=== PATIENT | male | born 1950 | race Caucasian/White ===

== ENCOUNTER → 2016-05-17 | Outpatient (CLI) | payer MEDICARE ==
--- NOTE | 2016-05-17 18:01 | REP ---
Left hip: Three views. History: Pain. Findings: AP and frog-leg views of the left hip are compared with prior study from February 21, 2007. Left hip arthroplasty is again seen unchanged in position. There is mild heterotopic bone formation about the greater trochanter. Vascular calcification is noted. There is no radiographic evidence of loosening. No bony erosive changes seen. IMPRESSION: Status post left hip arthroplasty. Mild heterotopic bone formation. No fracture or other acute bony abnormality. Signed by Justin Parrish MD 05/17/2016 10:14 P
== END ==
LOC: M WUC 15:09
PROVIDERS: ATTEND Nurse Practitioner Family
DX: Z12.5 Encounter for screening for malignant neoplasm of prostate (principal); M25.552 Pain in left hip

== ENCOUNTER → 2016-08-07 | Outpatient (REF) | payer MEDICARE | LOC: M LAB REF 12:51 | PROVIDERS: ATTEND Otolaryngology | DX: H73.12 Chronic myringitis, left ear (principal) ==

== ENCOUNTER 2016-11-30 15:18 | Inpatient (IN) | payer MEDICARE, MEDICAID ==
[~2016-11-30] VITALS: Ht 177.8 cm; Wt 111.0 kg
[2016-11-30] MEDS ORDERED: ZETI10TA30 PO (15:26)
[2016-11-30] MEDS ORDERED: ATOR40TA75 PO (15:26)
[2016-11-30] MEDS ORDERED: PRAD150C PO (15:26)
[2016-11-30] MEDS ORDERED: LISI-538 PO (15:26)
[2016-11-30] MEDS ORDERED: CARV25TA PO (15:26)
[2016-11-30] MEDS ORDERED: BUME2TAB PO (15:26)
[2016-11-30] MEDS ORDERED: ASPI1TAB PO (15:26)
[2016-11-30] MEDS ORDERED: NS 500 ML IV ONE ×2 (15:30→15:45)
--- NOTE | 2016-11-30 15:45 | REP ---
Portable chest, 03:38 p.m., single AP view, patient sitting: Comparison is 05/13/2011. There has been interim placement of a pacemaker. Cardiac size is normal. The previous cardiomegaly has resolved. The lung sheppard are clear. The previous interstitial coarsening has resolved. There are no pleural effusions. Impression: Negative portable chest. There has been interim placement of a pacemaker. Signed by Cisco Shields MD 11/30/2016 03:36 P
[2016-11-30 15:47] LABS: BASO % 0.6 % (0.0-1.0); EOS # 0.6 K/mm3 (0.0-0.50); EOS % 8.5 % (0.0-3.0); LARGE UNSTAINED CELL # 0.2 K/mm3 (0.0-0.4); LARGE UNSTAINED CELL % 2.4 % (0.0-4.0); LYMPH # 2.1 K/mm3 (1.5-4.5); MEAN CORPUSCULAR HEMOGLOBIN 29.2 pg (27.0-33.0); MEAN CORPUSCULAR HGB CONC 33.3 g/dl (32.0-36.5); MEAN CORPUSCULAR VOLUME 87.6 fl (80.0-96.0); MONO # 0.4 K/mm3 (0.0-0.8); MONO % 5.5 % (0.0-5.0); NEUTROPHILS # 4.1 K/mm3 (1.8-7.7); PLATELET COUNT, AUTOMATED 153 k/mm3 (150-450); RED CELL DISTRIBUTION WIDTH 12.7 % (11.5-14.5); WHITE BLOOD COUNT 7.2 K/mm3 (4.0-10.0)
[2016-11-30 15:56] LABS: INR 1.99
[2016-11-30 16:21] LABS: ALBUMIN 3.8 GM/DL (3.2-5.2); ALBUMIN/GLOBULIN RATIO 1.03 (1.00-1.93); ALKALINE PHOSPHATASE 77 U/L (45-117); ALT/SGPT 46 U/L (12-78); ANION GAP 6 MEQ/L (8-16); AST/SGOT 33 U/L (15-37); BILIRUBIN,DIRECT 0.2 MG/DL (0.0-0.2); BILIRUBIN,TOTAL 0.7 MG/DL (0.2-1.0); BLOOD UREA NITROGEN 42 MG/DL (7-18); CALCIUM LEVEL 9.2 MG/DL (8.8-10.2); CARBON DIOXIDE LEVEL 32 MEQ/L (21-32); CHLORIDE LEVEL 100 MEQ/L (98-107); CREATININE FOR GFR 2.79 MG/DL (0.70-1.30); GLOMERULAR FILTRATION RATE 24.5 (>49); GLUCOSE, FASTING 109 MG/DL (80-110); SODIUM LEVEL 138 MEQ/L (136-145); TOTAL PROTEIN 7.5 GM/DL (6.4-8.2)
[2016-11-30 16:43] LABS: AMYLASE 63 U/L (25-115)
[2016-11-30] MEDS ORDERED: LORA10TA2 PO (16:43)
[2016-11-30] MEDS ORDERED: VITMTA PO (16:43)
[2016-11-30] MEDS ORDERED: NITROGLYCERIN SPRAY SL (16:45)
--- NOTE | 2016-11-30 17:12 | REP ---
CT of the abdomen pelvis without IV or bowel contrast: Comparison is 09/22/2012. The visualized lung sheppard are unremarkable. The unenhanced hepatic parenchyma, pancreas and spleen are unremarkable. There are surgical clips in the gallbladder fossa. The adrenals are unremarkable. There is no hydronephrosis. No renal calculi. The unenhanced kidneys are otherwise unremarkable. There is no abdominal aortic aneurysm. There is no retroperitoneal hematoma. The aorta is unremarkable. There is no ascites or free fluid. There is no bowel distension. There is no pneumoperitoneum. There is diverticulosis, diverticulitis of the descending colon and sigmoid colon. Pelvis: The bladder is unremarkable. There is no ascites. There are bilateral hip arthroplasties resulting in significant beam-hardening artifact. Impression: The abdominal aorta is unremarkable. There is no hemoperitoneum or pneumoperitoneum. No ascites. No adenopathy or mass. There is a cholecystectomy. No bowel distension or obstruction. Diverticulosis without diverticulitis. Signed by Cisco Shields MD 11/30/2016 05:03 P
[2016-11-30] MEDS ORDERED: ONDANSETRON 4MG/2ML VIAL (J2405) IV PRN (18:00)
--- NOTE | 2016-11-30 18:29 | ECGEPIP ---
Stationary ECG Study [facility] - ED Test Date: 2016-11-30 Pat Name: CRISTHIAN MCCAULEY Department: Room: - Gender: M Outdoor Adventure Instructor: RN : [id number] Requested By: Anca Velasquez Order Number: [id number] Reading MD: Anca Velasquez Measurements Intervals [place] Rate: 56 P: NM: 0 QRS: 206 QRSD: 161 T: 31 QT: 467 QTc: 451 Interpretive Statements ELECTRONIC VENTRICULAR PACEMAKER ABNORMAL RHYTHM ECG ATRIAL FIBRILLATION PACING NEW 09/22/12 Electronically Signed On 11-30-2016 18:28:43 EDT by Anca Velasquez
[2016-11-30 19:00] VITALS: BP 102/56
--- NOTE | 2016-11-30 19:20 | REPUSA ---
CLINICAL HISTORY: R/o DVT. COMMENTS: Real time sonography with duplex doppler of the extremities bilaterally was performed with attention to the major deep venous structures. Evaluation reveals the common femoral, superficial femoral, popliteal and posterior tibial veins bila terally to be completely compressible without intraluminal thrombus. There is normal spontaneous phas ic flow and augmentation in all deep veins. The greater saphenous/common femoral vein junctions are p atent bilaterally. IMPRESSION: No evidence of DVT in the lower extremities bilaterally. Thank you for your kind referral of this patient.
[2016-11-30] MEDS: EZETIMIBE 10 MG TAB (ZETIA) PO SCH (20:50)
[2016-11-30] MEDS: ATORVASTATIN 20 MG TAB PO SCH (20:50)
[2016-11-30] MEDS: NS 1,000 ML IV SCH (20:50)
[2016-11-30] MEDS ORDERED: HEPARIN SOD (PORCINE) 5000 UNITS/ML VIAL SC SCH (21:00)
[2016-11-30] MEDS: DABIGATRAN ETEXILATE 75 MG CAP (PRADAXA) PO SCH (21:47)
[2016-11-30 23:45] VITALS: BP 99/56
[2016-11-30 23:47] VITALS: BP 99/55
[2016-11-30 23:48] VITALS: BP 102/56
[2016-12-01 04:00] VITALS: BP 108/65
[2016-12-01 05:19] LABS: BASO % 0.4 % (0.0-1.0); EOS # 0.8 K/mm3 (0.0-0.50); EOS % 10.9 % (0.0-3.0); LARGE UNSTAINED CELL # 0.2 K/mm3 (0.0-0.4); LARGE UNSTAINED CELL % 2.9 % (0.0-4.0); LYMPH # 2.3 K/mm3 (1.5-4.5); LYMPH % 29.9 % (24.0-44.0); MEAN CORPUSCULAR HEMOGLOBIN 29.8 pg (27.0-33.0); MEAN CORPUSCULAR HGB CONC 33.5 g/dl (32.0-36.5); MEAN CORPUSCULAR VOLUME 89.1 fl (80.0-96.0); MONO # 0.5 K/mm3 (0.0-0.8); NEUTROPHILS # 3.4 K/mm3 (1.8-7.7); PLATELET COUNT, AUTOMATED 134 k/mm3 (150-450); RED CELL DISTRIBUTION WIDTH 12.8 % (11.5-14.5); WHITE BLOOD COUNT 6.9 K/mm3 (4.0-10.0)
[2016-12-01 05:46] LABS: ANION GAP 6 MEQ/L (8-16); BLOOD UREA NITROGEN 39 MG/DL (7-18); CARBON DIOXIDE LEVEL 30 MEQ/L (21-32); CHLORIDE LEVEL 108 MEQ/L (98-107); CREATININE FOR GFR 1.73 MG/DL (0.70-1.30); GLOMERULAR FILTRATION RATE 42.5 (>49); GLUCOSE, FASTING 98 MG/DL (80-110); MAGNESIUM LEVEL 2.1 MG/DL (1.8-2.4); POTASSIUM SERUM 4.9 MEQ/L (3.5-5.1); SODIUM LEVEL 144 MEQ/L (136-145)
--- NOTE | 2016-12-01 07:33 | REP ---
Renal ultrasound: The kidneys are normal size. Right kidney measures 11.8 x 6.5 x 5.8 cm. Left kidney measures 11.2 x 5.9 x 5.5 cm. There is no hydronephrosis, mass or cyst on the right on the left. There are linear calcifications bilaterally compatible with vascular atheroma. Renal cortical echogenicity is normal bilaterally. Impression: Essentially negative renal ultrasound. Bladder ultrasound: The bladder is adequately distended. No bladder wall polyps or masses are identified by ultrasound. Impression: Negative bladder ultrasound. Signed by Cisco Shields MD 12/01/2016 07:24 A
[2016-12-01 07:45] VITALS: BP 118/67
[2016-12-01] MEDS: ASPIRIN 81 MG ENTERIC TAB PO SCH (09:25)
[2016-12-01] MEDS: NS 1,000 ML IV SCH ×2 (09:26→21:11)
[2016-12-01] MEDS: DABIGATRAN ETEXILATE 75 MG CAP (PRADAXA) PO SCH ×2 (09:26→21:11)
--- NOTE | 2016-12-01 11:24 | IPNPDOC ---
Text Note Date of Service The patient was seen on 12/01/16. NOTE Subjective: Pt feels well now. No CP/SOB/palpitations. Had diuretic increased outpt, treadmill at the gym with good exercise tolerance, and low fluid intake. Objective: Vitals: (see below) General: No acute distress, laying comfortably in bed. HEENT: Moist mucous membranes. Neck: No JVD or lymphadenopathy Cardiac: RRR, No murmurs Pulm: Clear to auscultation b/l. No wheezing, rhonchi Abd: NT/ND + BS Ext: No edema or cyanosis Labs (see below) Images: Renal u/s 11/30/16 Impression: Essentially negative renal ultrasound. Doppler u/s 11/30/16 IMPRESSION: No evidence of DVT in the lower extremities bilaterally. CT abd/pelvis 11/30/16 Impression: The abdominal aorta is unremarkable. There is no hemoperitoneum or pneumoperitoneum. No ascites. No adenopathy or mass. There is a cholecystectomy. No bowel distension or obstruction. Diverticulosis without diverticulitis. CXR 12/01/16 Impression: Negative portable chest. There has been interim placement of a pacemaker Assessment/Plan 1. Presyncope likely secondary to her orthostatic hypotension and severe dehydration. Patient is currently hypotensive with a systolic blood pressure in the 70s. Has had his diuretics increased outpatient. Has also been exercising more frequently and had decreased fluid intake. Patient's blood pressure is currently stable. Gentle hydration. Hold diuretics for now. Echocardiogram pending. EKG with no acute ST changes. 2. Acute kidney injury on chronic kidney disease. Baseline creatinine 1.3. Improving. Renal ultrasound negative. Likely secondary to diuretics, lisinopril , and dehydration. Hold diuretics and lisinopril for now. 3. Sinus bradycardia- likely secondary to Coreg which has been held for now. We' ll restart at lower dose prior to discharge as patient does have underlying history of coronary artery disease and atrial fibrillation. 4. Atrial fibrillation- rate controlled. Continue Pradaxa 5. History of coronary artery disease- continue home meds. We will restart Coreg at a lower dose once heart rate improves. 6. Obstructive sleep apnea on CPAP DVT prophy: Pradaxa Dispo: VS,Fishbone, I+O VS, Fishbone, I+O Laboratory Tests 11/30/16 15:32 Red Blood Count 4.90, Mean Corpuscular Volume 87.6, Mean Corpuscular Hemoglobin 29.2, Mean Corpuscular Hemoglobin Concent 33.3, Red Cell Distribution Width 12.7 , Neutrophils (%) (Auto) 57.0, Lymphocytes (%) (Auto) 26.0, Monocytes (%) (Auto ) 5.5 H, Eosinophils (%) (Auto) 8.5 H, Basophils (%) (Auto) 0.6, Neutrophils # ( Auto) 4.1, Lymphocytes # (Auto) 2.1, Monocytes # (Auto) 0.4, Eosinophils # (Auto ) 0.6 H, Basophils # (Auto) 0.0 12/01/16 05:05 Red Blood Count 4.46, Mean Corpuscular Volume 89.1, Mean Corpuscular Hemoglobin 29.8, Mean Corpuscular Hemoglobin Concent 33.5, Red Cell Distribution Width 12.8 , Neutrophils (%) (Auto) 49.0, Lymphocytes (%) (Auto) 29.9, Monocytes (%) (Auto ) 7.0 H, Eosinophils (%) (Auto) 10.9 H, Basophils (%) (Auto) 0.4, Neutrophils # (Auto) 3.4, Lymphocytes # (Auto) 2.3, Monocytes # (Auto) 0.5, Eosinophils # ( Auto) 0.8 H, Basophils # (Auto) 0.0, Calcium Level 8.0 L, Total Creatine Kinase 168 Vital Signs Date Time Temp Pulse Resp B/P (MAP) Pulse Ox O2 Delivery O2 Flow Rate FiO2 12/01/16 07:45 96.8 59 18 118/67 (84) 98 12/01/16 04:00 NIPPV (BIPAP/CPAP) 11/30/16 19:00 2.0 I&O- Last 24 Hours up to 6 AM 12/01/16 06:00 Intake Total 3035 ml Output Total 550 ml Balance 2485 ml MAMI STEPHENSON MD Dec 01, 2016 11:24
[2016-12-01 12:00] VITALS: BP 135/63
--- NOTE | 2016-12-01 12:19 | HPE ---
DATE OF ADMISSION: 11/30/2016 PRIMARY CARE PROVIDER: Ronald Ruvalcaba NP BIOTECH PRODUCTION SPECIALIST: Dr. Burciaga CHIEF COMPLAINT: Sudden onset of nausea, abdominal discomfort, dizziness, lightheadedness, diaphoresis, and almost blacking out which happened immediately after lunch in the afternoon. PAST MEDICAL HISTORY: 1. Coronary artery disease with history of myocardial infarction ([place]) and stents in 1999 and 2003. 2. Congestive heart failure with automatic implantable cardioverter defibrillator (AICD) in place in 2014. 3. Atrial fibrillation with history of ablation. 4. Obstructive sleep apnea (EMETERIO), uses bilevel positive airway pressure (BiPAP). 5. Hypertension. 6. Hyperlipidemia. 7. Obesity. HISTORY OF PRESENT ILLNESS: This is a 66-year-old male who was in his usual state of health this morning. 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 He came back, had his lunch, and soon after lunch started feeling nauseous and abdominal cramps, felt like he would throw up. He decided to try and go to the bathroom and see if that helped. On his way to the bathroom from the dining room, he felt extremely dizzy and lightheaded and was having drenching sweats. He almost felt like he was going to pass out so he sat in the chair. He described like he felt a black cloud coming in front of his eyes. He could not see, however, could hear his talking to him. At that point, his called emergency medical services (EMS). EMS on site found him to be hypotensive with a systolic blood pressure in the 70s. He was given 300 mL of IV fluids, and with that, his symptoms resolved. By the time he came to the emergency room, he was symptom free. However, on arrival, he was still hypotensive with systolic blood pressure in the 80s and he was given some more fluid. With that, the blood pressure improved to low 100s. In the emergency room, he was found to have all paced rhythms. All his symptoms by that time had resolved. Of note, the patient's diuretic dose was increased from Lasix 40 mg daily to Bumex 2 mg daily six weeks ago and he has changed his diet following strict fluid and salt restriction and has lost 17 pounds weight in this past six weeks with diet and exercise as well as diuretics. He denied any chest pain. He denied any shock from his defibrillator. He denied any shortness of breath. He denied any cough. The patient denies any leg pain or leg swelling. He denied any recent travel either in a car or in a flight for over 2-3 hours. He denied any vomiting or diarrhea. PAST SURGICAL HISTORY: 1. Automatic implantable cardioverter defibrillator (AICD) placement in 2014. 2. Coronary artery stenting twice, once in 1999 and once in 2003. 3. Cholecystectomy. 4. Right carpal tunnel repair. 5. Deviated nasal septal repair. 6. Cardiac ablation for atrial fibrillation. ALLERGIES: No known allergies. HOME MEDICATIONS: - lisinopril 20 mg daily - Bumex 2 mg daily - Coreg 50 mg twice a day - loratadine 10 mg daily - multivitamins one tablet daily - nitroglycerine sublingual as needed - aspirin 81 mg daily - atorvastatin 40 mg at bedtime - Pradaxa 150 mg by mouth twice a day - Zetia 10 mg at bedtime SOCIAL HISTORY: The patient does not smoke. He does not drink alcohol or use any recreational drugs. FAMILY HISTORY: Nothing significant. REVIEW OF SYSTEMS: All 10-point review of systems are negative except as mentioned in the history of present illness (HPI). PHYSICAL EXAMINATION: GENERAL: The patient is awake, alert and oriented times three, laying down in bed in no acute distress. VITAL SIGNS: Temperature 97, pulse 55, respiratory rate 18, blood pressure 116/59, pulse oximetry 100% with two liters. HEENT: Normocephalic, atraumatic. Moist mucous membranes. Anicteric eyes. CHEST: Clear to auscultation. CARDIOVASCULAR: S1, S2, regular. ABDOMEN: Obese, soft, nontender. Bowel sounds present. EXTREMITIES: No edema. There are chronic venous stasis changes. IMAGING STUDIES: Chest x-ray did not show any acute abnormality. There is a pacemaker in place. There is no cardiomegaly. Abdomen and pelvis CT: Abdominal aorta is unremarkable. There is hemoperitoneum or pneumoperitoneum. No ascites. No lymphadenopathy or mass. No bowel obstruction or distention. There is diverticulosis without diverticulitis. There is no aortic aneurysm. There is no retroperitoneal hematoma. ASSESSMENT AND PLAN: This is a 66-year-old male admitted for presyncope, hypotension, and acute kidney injury. PLAN: 1. For presyncope, we will admit the patient to the progressive care unit (PCU). We will ask cardiology to check his automatic implantable cardioverter defibrillator (AICD) to see if he had any abnormal cardiac rhythm which was outside the set parameters limits for his AICD firing. The presyncope could also have been vasovagal with the recent history of change in diuretics, loss of 17 pounds of weight, and recent increase in exercising. The patient did not have any abdominal aortic aneurysm. The patient is at low risk for pulmonary embolism as he is very active and mobile. However, we will get deep vein thrombosis (DVT) scan of both the legs. At this point, we cannot do any CT angiogram of the chest because of his elevated creatinine. If his symptoms recur and after his creatinine starts going down, we may consider CT angiogram of the chest. We will get an echocardiogram. The presyncope could be due to hypotension from dehydration. 2. Hypotension. This could be due to dehydration in view of the patient's increase in diuretics, loss of 17 pounds weight, resolving of all pedal edema, and increasing exercise. We will continue with gentle hydration. 3. Acute kidney injury. This is probably prerenal. We will continue with gentle hydration. We will get renal ultrasound. We will hold lisinopril and Bumex at this point. We will also hold Coreg until the blood pressure improves. 4. Coronary artery disease with history of myocardial infarction ([place]) and stents. We will cycle cardiac enzymes to see if he had any silent cardiac event. 5. Congestive heart failure with AICD in place. We will get an echocardiogram. The patient does not have any fluid overload at this point. 6. Atrial fibrillation. Now has paced rhythm. We will continue with Pradaxa. 7. Obstructive sleep apnea (EMETERIO). We will continue with bilevel positive airway pressure (BiPAP). 8. DVT prophylaxis. The patient is on Pradaxa.
--- NOTE | 2016-12-01 13:16 | ECHO ---
DATE OF PROCEDURE: 12/01/2016 REFERRING PHYSICIAN: Zunilda Ruggiero MD CORPORATE TAX PREPARER: Dr. Burciaga PATIENT LOCATION: Room 3230 REASON FOR ECHOCARDIOGRAM: Syncope. 2D MEASUREMENTS: IVS: 1.3 cm LV: 5.6 cm LVPW: LA: 4.3 cm Aorta: 3.3 cm IVC: 2.2 cm DOPPLER MEASUREMENTS: Peak velocity across the aortic valve: 2.5 m/s Peak velocity across the LVOT: 0.7 m/s Aortic valve area: 1.2 cm squared Mitral E: 0.90 Maximum velocity across the aortic valve: 2.8 m/s 2D COMMENTS: 1. Normal left ventricular size with mildly increased left ventricular wall thickness. Left ventricular systolic ejection fraction seems to be normal with an estimated left ventricular systolic ejection fraction of 55 to 60%. 2. Mildly enlarged left atrium. The right atrium also appeared to be mildly enlarged. The right ventricle appeared to be mildly enlarged, but the right ventricular free wall seems to be christina. 3. The atrial septum appeared to be normal without evidence of defect or shunt. 4. Normal aortic root. 5. No pericardial effusion seen. 6. Mildly calcified aortic valve with mildly restricted leaflet motion. Mildly calcified mitral annulus with normal mitral valve leaflet motion. Normal tricuspid valve and pulmonic valve. The proximal pulmonary artery branches were not well visualized. 7. The inferior vena cava was mildly enlarged. Central venous pressure might be elevated. DOPPLER: Detects trace aortic regurgitation, mild mitral regurgitation, moderate tricuspid regurgitation, and trace to mild pulmonary regurgitation. The calculated pulmonary artery systolic pressure varies between 30 to 40 mmHg. Assessment of the left ventricular diastolic function was limited. IMPRESSION: 1. Normal global left ventricular systolic function with mild concentric left ventricular hypertrophy. Assessment of the left ventricular diastolic function was limited in view of the underlying atrial fibrillation. 2. Aortic valve sclerosis with trace aortic regurgitation and mild aortic stenosis. 3. Mitral annulus calcification with mildly enlarged left atrium and mild mitral regurgitation. 4. Moderate tricuspid regurgitation with probably mild to moderate pulmonary hypertension and dilated right atrium. 5. Trace to mild pulmonic regurgitation. Not mentioned above, pacemaker wire was noted in the right heart chambers. MTDD
[2016-12-01 16:00] VITALS: BP 114/59
[2016-12-01 19:23] VITALS: BP 112/55
[2016-12-01] MEDS: EZETIMIBE 10 MG TAB (ZETIA) PO SCH (21:11)
[2016-12-01] MEDS: ATORVASTATIN 20 MG TAB PO SCH (21:11)
[2016-12-02 00:09] VITALS: BP 109/55
--- NOTE | 2016-12-02 01:49 | CR ---
DATE OF CONSULTATION: 12/01/2016 REFERRING PROVIDER: DEBORAH Rubin. BLUEBERRY GROWER: Sharron Burciaga MD. REASON FOR CONSULTATION: Near syncope, hypotension, history of coronary artery disease (CAD) and cardiomyopathy. HISTORY OF PRESENT ILLNESS: 66-year-old male well known by the office and usually sees Dr. Burciaga, the last time was in the month of September of this year and was stable. After seeing Dr. 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 Prior to that, he was on furosemide at 40 mg by mouth daily. After that visit, he has started a low-salt diet, as well as low-calorie diet and low-cholesterol diet trying to lose weight and he has lost about 17 pounds. He also has been exercising almost daily at the [facility] in [place], [place]. On the day of his admission, after exercising, he went home, had lunch in the morning, he also had breakfast. After eating, he suddenly felt dizzy and lightheaded and also sensation of feeling sick in his stomach, but he did not vomit and he had managed to go to the bathroom and while going there, he was feeling more dizzy and became diaphoretic. His vision was blurred. He almost passed out, but he stated that he was close. His called emergency medical services (EMS) and within about 10 minutes, they were there on scene and he heard that his blood pressure was 70. He was started on intravenous (IV) fluids and at the time he arrived at the emergency room (ER), his blood pressure was about 80 mmHg, and at that time he was not dizzy and he was not diaphoretic. He was given more fluids and his blood pressure, the systolic increased above 100. He then was admitted for further management and monitoring. There was no associated chest pain or palpitations and his automatic implantable cardioverter-defibrillator (AICD) did not go off. He denies any fever or chills. There is no swelling of the joints. There is no focal manifestation. He takes his medication regularly. Since his furosemide was changed to Bumex, he has not had any blood work until this hospitalization. He has a past medical history positive for coronary artery disease with a history of percutaneous transluminal coronary angioplasty (PTCA)/stent, history of cardiomyopathy for which a single-lead AICD was implanted in 2011 at [facility] and in 2012, it was upgraded to a biventricular (BIV) AICD. His left ventricular ejection fraction (LVEF) initially was about 30% in 2011, and on the last assessment last year, it was reported to be 55-60%. He also has a history of hyperlipidemia, hypertension, atrial fibrillation that has been chronic and persistent, and obesity, as well as arthritis. There is no history of CVA, diabetes mellitus. He denies any prior history of kidney disease. His basic metabolic panel (BMP) upon arrival at the hospital BUN of 42 with a serum creatinine of 2.79. PAST SURGICAL HISTORY: Positive for AICD implantation, single chamber on 09/05/2011, and on 03/08/2013, it was upgraded to a BIV AICD. He also has a history of left hip replacement in 2006, cholecystectomy in 2005 and right carpal tunnel release surgery. MEDICATIONS AT HOME: - aspirin 81 mg by mouth daily - Pradaxa 150 mg by mouth twice a day - Zetia 10 mg one tablet by mouth daily - lisinopril 20 mg by mouth daily - Lipitor 40 mg by mouth daily - Bumex 2 mg by mouth daily - Coreg 25 mg by mouth twice a day - Claritin 10 mg by mouth daily - nitroglycerin sublingual as needed for chest pain CURRENT MEDICATIONS: When I saw him: - aspirin 81 mg by mouth daily - Pradaxa 150 mg by mouth twice a day - atorvastatin 40 mg by mouth before food - Zetia 10 mg by mouth daily - ondansetron 4 mg intravenous (IV) every 6 hours as needed for nausea or vomiting - he is on normal saline at 75 mL/h FAMILY HISTORY: Strongly positive for heart disease including coronary artery disease, CVA. SOCIAL HISTORY: Patient lives with his and he does not smoke or abuse alcohol. ALLERGIES: He has no known drug allergies. He is a FULL CODE. PHYSICAL EXAMINATION: Blood pressure when I saw him was 118/57 with a pulse of 59, respirations 18, and his maximum temperature was 96.8 degrees Fahrenheit with an oxygen saturation of 98% on room air. Examination of the head, ears, eyes, nose and throat: Atraumatic. Neck is supple. No jugular venous distention (JVD) or carotid bruits. The lungs did not reveal any wheezing or crackles. The heart examination revealed normal S1, S2 without gallops. The point of maximal impulse (PMI) is not displaced. There was no rub. I could not appreciate any murmurs. Abdomen is soft and nontender. Bowel sounds are active. Extremities reveal trace ankle edema. Neurological examination is negative for focal deficit. LABORATORIES: BMP on 11/30/2016 revealed a sodium of 138, potassium 5.0, chloride 100, CO2 22, BUN 42, creatinine 2.79, GFR 24.5, fasting glucose 109, calcium 9.2. Liver enzymes reveal a total bilirubin of 0.7, direct bilirubin 0.2, AST 33, ALT 47, alkaline phosphatase 77, total protein 7.5, albumin 3.8. Serum lipase was 470 and serum amylase 63. Troponin was less than 0.02 times four. BNP was 73.3. BMP done today revealed a sodium of 144, potassium 4.9, chloride 108, CO2 30, BUN 39, creatinine 1.73, GFR 42.5, fasting glucose 98, calcium 8.1. Serum magnesium is 2.1. Serum lactic acid on admission was 2.0. PT on admission was 23.3 with an INR of 1.99. Urinalysis revealed +1 bacteria, otherwise unremarkable. Blood cultures have been negative. Chest x-ray on admission revealed no acute disease process. No cardiomegaly. No manifestation of heart failure or pleural effusion. Doppler of the legs bilaterally on 11/30/2016 revealed no evidence of DVT. Renal ultrasound on 11/30/2016 was essentially normal. Abdominal and pelvic CT on 11/30/2016 without contrast revealed an unremarkable abdominal aorta. There was diverticulosis, but no diverticulitis. EKG on admission revealed with right axis deviation, due to the biventricular pacemaker. Underlying rhythm is atrial fibrillation. The rate is 56 beats per minute. IMPRESSION: 66-year-old man with a history of coronary artery disease and ischemic cardiomyopathy that has resolved after implantation of a biventricular pacemaker, hypertension, hyperlipidemia, obesity, and arthritis, was admitted after one episode of near syncope that seems to be related to a hypotensive episode resulting from weight loss and his antihypertensive medications. He is also dehydrated after starting the Bumex. He was started on intravenous (IV) fluids and it seems that he has responded and doing well. His kidney function has improved. The lisinopril has been on hold, as well as the Bumex and the carvedilol. He had an echocardiogram done earlier today and it revealed a normal global left ventricular systolic function. His pacemaker, based on the telemetry, seems to be working fine. Will continue to hold the angiotensin-converting enzyme (JUANI) inhibitor, as well as the beta tawny and the Bumex today and tomorrow they can be restarted, but at a lower dose. This was discussed with the patient, as well as his and he manifested understanding. He might be able to go home tomorrow or the latest on Friday. It has been a pleasure to participate in the care of Mr. Kristopher Cardenas for his underlying cardiac condition. Will continue to monitor him along with you and tomorrow he will be seen by Dr. Burciaga. Please do not hesitate to call if any questions. AMI
[2016-12-02 04:10] VITALS: BP 105/60
[2016-12-02 05:45] LABS: BASO % 0.6 % (0.0-1.0); EOS # 0.4 K/mm3 (0.0-0.50); EOS % 8.9 % (0.0-3.0); LARGE UNSTAINED CELL # 0.2 K/mm3 (0.0-0.4); LARGE UNSTAINED CELL % 3.4 % (0.0-4.0); LYMPH # 1.9 K/mm3 (1.5-4.5); LYMPH % 36.8 % (24.0-44.0); MEAN CORPUSCULAR HEMOGLOBIN 29.2 pg (27.0-33.0); MEAN CORPUSCULAR HGB CONC 33.2 g/dl (32.0-36.5); MEAN CORPUSCULAR VOLUME 87.9 fl (80.0-96.0); MONO # 0.3 K/mm3 (0.0-0.8); MONO % 5.4 % (0.0-5.0); NEUTROPHILS # 2.3 K/mm3 (1.8-7.7); NEUTROPHILS % 44.9 % (36.0-66.0); PLATELET COUNT, AUTOMATED 130 k/mm3 (150-450); RED CELL DISTRIBUTION WIDTH 12.5 % (11.5-14.5); WHITE BLOOD COUNT 5.1 K/mm3 (4.0-10.0)
[2016-12-02 06:16] LABS: ANION GAP 4 MEQ/L (8-16); BLOOD UREA NITROGEN 23 MG/DL (7-18); CARBON DIOXIDE LEVEL 30 MEQ/L (21-32); CHLORIDE LEVEL 109 MEQ/L (98-107); CREATININE FOR GFR 1.17 MG/DL (0.70-1.30); GLOMERULAR FILTRATION RATE > 60.0 (>49); GLUCOSE, FASTING 92 MG/DL (80-110); POTASSIUM SERUM 4.5 MEQ/L (3.5-5.1); SODIUM LEVEL 143 MEQ/L (136-145)
[2016-12-02 08:00] VITALS: BP 117/57
--- NOTE | 2016-12-02 08:29 | IPN ---
DATE: 12/02/2016 Mr. Cardenas is feeling "great." He was able to ambulate around the progressive care unit (PCU) yesterday without difficulty. He would like to go home. He has no specific complaints. Blood pressure 105/60. Heart rate has been in the 50s. He has underlying atrial fibrillation with ventricular pacing. He is afebrile. Saturation 97% on room air. Fluid balance was a little positive yesterday. Weight is 111 kg today. He is alert and oriented and appropriate. His jugular venous pulse (JVP) is not detected above the clavicle in a semi-sitting position. Lungs are clear with good air movement. Heart exam reveals a regular rhythm. I do not appreciate gallop, rub or murmur. Abdomen is obese, but soft and nontender. There is no peripheral edema. Neurologically, he is intact. Basic metabolic panel: potassium 4.5, BUN 23, creatinine 1.2, glucose 92, magnesium 2.0. CBC: hemoglobin 12.6, hematocrit 38, platelet count 130,000. ASSESSMENT/PLAN: Mr. Cardenas is a 66-year-old man who has chronic atrial fibrillation, status post AV lokesh ablation and biventricular defibrillator placement. He originally had LV systolic dysfunction, but it has recovered, an echocardiogram performed during this hospitalization indeed confirms preserved LV systolic function. He presented with near syncopal event that was likely related to hypotension, most likely as a consequence of recent very prominent weight loss without adjusting his medications. I did interrogate his ICD today, it is functioning normally. There were no detected arrhythmias. His volume status indeed indicates that since approximately late August there has been significant drop, indicating very good volume control. I believe that he can be discharged home today. I would put him on a very small dose of Coreg, probably not more than 6.25 twice a day and leave the JUANI inhibitor and diuretics off. I encourage him to continue his lifestyle change with healthy diet and regular exercise and these episodes should not discourage him from pursuing this further.
[2016-12-02] MEDS: DABIGATRAN ETEXILATE 75 MG CAP (PRADAXA) PO SCH (08:57)
[2016-12-02] MEDS: ASPIRIN 81 MG ENTERIC TAB PO SCH (08:57)
[2016-12-02] MEDS ORDERED: CARV6.25 PO (10:18)
--- NOTE | 2016-12-02 13:24 | DS.PDOC ---
Discharge Summary General Date of Admission Nov 30, 2016 at 17:57 Date of Discharge 12/03/16 Attending Physician: MAMI STEPHENSON MD Discharge Summary PROCEDURES PERFORMED DURING STAY: None. ADMITTING/DISCHARGE DIAGNOSES: 1. Presyncope likely secondary to her orthostatic hypotension and severe dehydration. 2. Acute kidney injury on chronic kidney disease 3. Sinus bradycardia 4. Atrial fibrillation 5. History of coronary artery disease 6.Obstructive sleep apnea on CPAP 7. History of congestive heart failure status post ICD COMPLICATIONS/CHIEF COMPLAINT: Lightheadedness HISTORY OF PRESENT ILLNESS/HOSPITAL COURSE: This is a 66-year-old male past medical history of CAD, atrial fibrillation, EMETERIO on CPAP presents complaining of dizziness and lightheadedness. 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 The patient states that 's he has. Exercise tolerance and stays at the gym for about an hour, and has no chest pain or palpitations on the treadmill. Patient states that he has been watching his fluid intake as he does have a history of congestive heart therapy. He started to develop symptoms consistent with orthostatic hypotension, which have been progressively worse after the gym. The patient presented with acute kidney injury, hypotension, and orthostatic hypertension. This is likely secondary to the severe dehydration from his diuretics. His acute kidney injury was also likely secondary to lisinopril as well. The patient also had sinus bradycardia secondary to the Coreg. Dr. Burciaga is also evaluated the ICD with no events noted. He was evaluated by cardiology and has been cleared for discharge, with the plan to hold his lisinopril and diuretics for now, decrease Coreg to 6.25 twice a day, and have outpatient follow-up very similar. Patient is in agreement. DISCHARGE MEDICATIONS: Please see below. ALLERGIES: Please see below. PHYSICAL EXAMINATION ON DISCHARGE: Vitals: (see below) General: No acute distress, laying comfortably in bed. HEENT: Moist mucous membranes. Neck: No JVD or lymphadenopathy Cardiac: RRR, No murmurs Pulm: Clear to auscultation b/l. No wheezing, rhonchi Abd: NT/ND + BS Ext: No edema or cyanosis LABORATORY DATA: Please see below. IMAGING: Vitals: (see below) General: No acute distress, laying comfortably in bed. HEENT: Moist mucous membranes. Neck: No JVD or lymphadenopathy Cardiac: RRR, No murmurs Pulm: Clear to auscultation b/l. No wheezing, rhonchi Abd: NT/ND + BS Ext: No edema or cyanosis PROGNOSIS: Fair ACTIVITY: As tolerated. DIET: Low-sodium DISCHARGE PLAN/DISPOSITION: Discharged to home DISCHARGE INSTRUCTIONS: 1. Follow-up with PCP and cardiology in 1 week. DISCHARGE CONDITION: Stable. TIME SPENT ON DISCHARGE: Greater than 30 minutes. Vital Signs/I&Os Vital Signs Date Time Temp Pulse Resp B/P (MAP) Pulse Ox O2 Delivery O2 Flow Rate FiO2 12/02/16 08:00 97.2 57 18 117/57 (77) 98 Room Air 11/30/16 19:00 2.0 I&O- Last 24 Hours up to 6 AM 12/02/16 06:00 Intake Total 3120 ml Output Total 1550 ml Balance 1570 ml Laboratory Data Labs 24H Laboratory Tests 2 12/01/16 13:37: Total Creatine Kinase 159, Creatine Kinase MB 1.8, Creatine Kinase MB Relative Index 1.13, Troponin I < 0.02 12/02/16 04:19: Anion Gap 4L, Glomerular Filtration Rate > 60.0, Blood Urea Nitrogen 23H, Creatinine 1.17, Sodium Level 143, Potassium Level 4.5, Chloride Level 109H, Carbon Dioxide Level 30, Calcium Level 8.0L, Magnesium Level 2.0 12/02/16 04:20: White Blood Count 5.1, Red Blood Count 4.32, Hemoglobin 12.6L, Hematocrit 38.0L , Mean Corpuscular Volume 87.9, Mean Corpuscular Hemoglobin 29.2, Mean Corpuscular Hemoglobin Concent 33.2, Red Cell Distribution Width 12.5, Platelet Count 130L, Neutrophils (%) (Auto) 44.9, Lymphocytes (%) (Auto) 36.8, Monocytes (%) (Auto) 5.4H, Eosinophils (%) (Auto) 8.9H, Basophils (%) (Auto) 0.6, Neutrophils # (Auto) 2.3, Lymphocytes # (Auto) 1.9, Monocytes # (Auto) 0.3, Eosinophils # (Auto) 0.4, Basophils # (Auto) 0.0, Large Unclassified Cells % 3.4 , Large Unclassified Cells # 0.2 CBC/BMP Laboratory Tests 12/02/16 04:19 Calcium Level 8.0 L 12/02/16 04:20 Red Blood Count 4.32, Mean Corpuscular Volume 87.9, Mean Corpuscular Hemoglobin 29.2, Mean Corpuscular Hemoglobin Concent 33.2, Red Cell Distribution Width 12.5 , Neutrophils (%) (Auto) 44.9, Lymphocytes (%) (Auto) 36.8, Monocytes (%) (Auto ) 5.4 H, Eosinophils (%) (Auto) 8.9 H, Basophils (%) (Auto) 0.6, Neutrophils # ( Auto) 2.3, Lymphocytes # (Auto) 1.9, Monocytes # (Auto) 0.3, Eosinophils # (Auto ) 0.4, Basophils # (Auto) 0.0 Microbiology Microbiology 11/30/16 Blood Culture - Preliminary, Resulted No growth after 24 hours . All specim... 11/30/16 Blood Culture - Preliminary, Resulted No growth after 24 hours . All specim... Discharge Medications Scheduled Aspirin (Aspirin 81) 81 Mg Tab, 81 MG PO DAILY, (Reported) Atorvastatin Calcium (Atorvastatin Calcium) 40 Mg Tab, 40 MG PO QHS, (Reported) Carvedilol (Carvedilol) 6.25 Mg Tab, 6.25 MG PO BID Dabigatran Etexilate (Pradaxa) 150 Mg Cap, 150 MG PO BID, (Reported) Ezetimibe (Zetia) 10 Mg Tab, 10 MG PO QHS, (Reported) Loratadine (Loratadine) 10 Mg Tab, 10 MG PO DAILY, (Reported) Multivitamins *[facility] STOCKED* (Thera M Plus *[facility] STOCKED*) 1 Tab Tab, 1 TAB PO DAILY, (Reported) Scheduled PRN [Nitroglycerin [place]] , 1 DOSE SL for CHEST PAIN, (Reported) Allergies Coded Allergies: No Known Allergies (Verified Allergy, Unknown, 11/05/05) MAMI STEPHENSON MD Dec 02, 2016 13:24
== END 2016-12-02 11:02 | disposition home or self-care (01) | DRG 315 ==
LOC: M ED 15:18 → M ED INP 17:57 → M PCU 19:01
PROVIDERS: ADMIT Internal Medicine Nephrology; ATTEND Internal Medicine
DX: I95.89 Other hypotension (principal); N17.9 Acute kidney failure, unspecified; I42.9 Cardiomyopathy, unspecified; E86.0 Dehydration; N18.9 Chronic kidney disease, unspecified; I25.10 Atherosclerotic heart disease of native coronary artery without angina pectoris; I50.9 Heart failure, unspecified; G47.33 Obstructive sleep apnea (adult) (pediatric); I48.91 Unspecified atrial fibrillation; R00.1 Bradycardia, unspecified; Z79.82 Long term (current) use of aspirin; Z79.899 Other long term (current) drug therapy; I25.2 Old myocardial infarction; Z95.810 Presence of automatic (implantable) cardiac defibrillator; E66.9 Obesity, unspecified; E78.5 Hyperlipidemia, unspecified; I12.9 Hypertensive chronic kidney disease with stage 1 through stage 4 chronic kidney disease, or unspecified chronic kidney disease; Z96.642 Presence of left artificial hip joint

== ENCOUNTER → 2017-01-28 | Outpatient (CLI) | payer MEDICARE ==
[~2017-01-28] MED LIST: ASPI1TAB PO; ATOR40TA75 PO; BUME2TAB PO; CARV25TA PO; CARV6.25 PO; LISI-538 PO; LORA10TA2 PO; NITROGLYCERIN SPRAY SL; PRAD150C PO; VITMTA PO; ZETI10TA30 PO
[2017-01-28 08:36] LABS: ALBUMIN 3.6 GM/DL (3.2-5.2); ALKALINE PHOSPHATASE 64 U/L (45-117); ALT/SGPT 46 U/L (12-78); ANION GAP 6 MEQ/L (8-16); AST/SGOT 40 U/L (15-37); BILIRUBIN,TOTAL 1.3 MG/DL (0.2-1.0); BLOOD UREA NITROGEN 15 MG/DL (7-18); CALCIUM LEVEL 8.7 MG/DL (8.8-10.2); CARBON DIOXIDE LEVEL 30 MEQ/L (21-32); CHLORIDE LEVEL 104 MEQ/L (98-107); CHOLESTEROL LEVEL 103 MG/DL (<200); CREATININE FOR GFR 1.01 MG/DL (0.70-1.30); GLOMERULAR FILTRATION RATE > 60.0 (>49); GLUCOSE, FASTING 97 MG/DL (80-110); POTASSIUM SERUM 4.2 MEQ/L (3.5-5.1); SODIUM LEVEL 140 MEQ/L (136-145); TOTAL PROTEIN 6.6 GM/DL (6.4-8.2); TRIGLYCERIDES LEVEL 59 MG/DL (<150)
== END ==
LOC: M LAB 06:55
PROVIDERS: ATTEND Nurse Practitioner Family
DX: E78.5 Hyperlipidemia, unspecified (principal); I11.0 Hypertensive heart disease with heart failure

== ENCOUNTER → 2017-06-02 | Outpatient (CLI) | payer MEDICARE | LOC: M WUC 07:55 | DX: E78.5 Hyperlipidemia, unspecified (principal); I11.0 Hypertensive heart disease with heart failure; Z12.5 Encounter for screening for malignant neoplasm of prostate ==

== ENCOUNTER → 2017-06-02 | Outpatient (CLI) | payer MEDICARE ==
[2017-06-02 09:00] LABS: BASO % 0.8 % (0.0-1.0); EOS # 0.2 10^3/uL (0.0-0.50); EOS % 4.3 % (0.0-3.0); HEMATOCRIT 47.6 % (42.0-52.0); HEMOGLOBIN 15.6 g/dl (14.0-18.0); IMMATURE GRANULOCYTE % 0.2 % (0-3.0); LYMPH # 1.4 10^3/uL (1.5-4.5); LYMPH % 28.1 % (24.0-44.0); MEAN CORPUSCULAR HEMOGLOBIN 28.4 pg (27.0-33.0); MEAN CORPUSCULAR HGB CONC 32.8 g/dl (32.0-36.5); MEAN CORPUSCULAR VOLUME 86.7 fl (80.0-96.0); MONO # 0.5 10^3/uL (0.0-0.8); MONO % 10.2 % (0.0-5.0); NEUTROPHILS # 2.9 10^3/uL (1.8-7.7); NEUTROPHILS % 56.4 % (36.0-66.0); PLATELET COUNT, AUTOMATED 166 10^3/uL (150-450); RED BLOOD COUNT 5.49 10^6/uL (4.30-6.10); RED CELL DISTRIBUTION WIDTH 13.6 % (11.5-14.5); WHITE BLOOD COUNT 5.1 10^3/uL (4.0-10.0)
[2017-06-02 09:24] LABS: ALBUMIN 3.6 GM/DL (3.2-5.2); ALBUMIN/GLOBULIN RATIO 1.06 (1.00-1.93); ALKALINE PHOSPHATASE 81 U/L (45-117); ALT/SGPT 58 U/L (12-78); ANION GAP 6 MEQ/L (8-16); AST/SGOT 41 U/L (7-37); BILIRUBIN,TOTAL 1.3 MG/DL (0.2-1.0); BLOOD UREA NITROGEN 13 MG/DL (7-18); CALCIUM LEVEL 8.2 MG/DL (8.8-10.2); CARBON DIOXIDE LEVEL 31 MEQ/L (21-32); CHLORIDE LEVEL 104 MEQ/L (98-107); CHOLESTEROL LEVEL 107 MG/DL (<200); CHOLESTEROL RISK RATIO 2.743 (<5); CREATININE FOR GFR 1.14 MG/DL (0.70-1.30); GLOMERULAR FILTRATION RATE > 60.0 (>49); GLUCOSE, FASTING 114 MG/DL (70-100); HDL CHOLESTEROL 39 MG/DL (>40); NON-HDL-C 68 MG/DL; POTASSIUM SERUM 4.6 MEQ/L (3.5-5.1); SODIUM LEVEL 141 MEQ/L (136-145); TRIGLYCERIDES LEVEL 65 MG/DL (<150)
== END ==
LOC: M WUC 08:04
DX: I11.0 Hypertensive heart disease with heart failure (principal); E78.5 Hyperlipidemia, unspecified; Z12.5 Encounter for screening for malignant neoplasm of prostate
CPT/HCPCS: 80053

== ENCOUNTER → 2017-08-18 | Outpatient (REF) | payer MEDICARE | LOC: M LAB REF 12:02 | DX: H65.22 Chronic serous otitis media, left ear (principal) | CPT/HCPCS: 87186; 87205 ==

== ENCOUNTER → 2017-10-09 | Outpatient (CLI) | payer MEDICARE, MEDICAID | LOC: M WUC 17:07 | DX: R07.9 Chest pain, unspecified (principal) | CPT/HCPCS: 71046 ==

== ENCOUNTER → 2017-10-29 | Outpatient (CLI) | payer MEDICARE | LOC: M WUC 12:30 | DX: M19.011 Primary osteoarthritis, right shoulder (principal) | CPT/HCPCS: 73030 ==

== ENCOUNTER → 2017-11-03 | Outpatient (CLI) | payer MEDICARE | LOC: M RAD 14:25 | DX: M19.011 Primary osteoarthritis, right shoulder (principal) | CPT/HCPCS: 73200 ==

== ENCOUNTER → 2018-02-06 | Outpatient (CLI) | payer MEDICARE, MEDICAID | LOC: M WUC 08:45 | DX: M54.42 Lumbago with sciatica, left side (principal) | CPT/HCPCS: 72110 ==

== ENCOUNTER → 2018-02-26 | Outpatient (CLI) | payer MEDICARE, MEDICAID | LOC: M RAD 07:28 | DX: M51.26 Other intervertebral disc displacement, lumbar region (principal); M48.061 Spinal stenosis, lumbar region without neurogenic claudication | CPT/HCPCS: 72131 ==

== ENCOUNTER → 2018-10-30 | Outpatient (CLI) | payer MEDICARE, MEDICAID ==
[~2018-10-30] MED LIST changes: -ASPI1TAB PO; +ASPI81TA26 PO; -BUME2TAB PO; +BUME2TAB3 PO; -LORA10TA2 PO; +LORA10TA3 PO; -PRAD150C PO; +PRAD150C6 PO
[2018-10-30 15:44] LABS: BASO % 0.6 % (0.0-1.0); EOS # 0.4 10^3/uL (0.0-0.50); EOS % 6.5 % (0.0-3.0); HEMATOCRIT 48.1 % (42.0-52.0); HEMOGLOBIN 15.8 g/dl (13.5-17.5); LYMPH # 2.1 10^3/uL (1.5-4.5); LYMPH % 30.1 % (24.0-44.0); MEAN CORPUSCULAR HEMOGLOBIN 28.3 pg (27.0-33.0); MEAN CORPUSCULAR HGB CONC 32.8 g/dl (32.0-36.5); MONO # 0.7 10^3/uL (0.0-0.8); MONO % 10.4 % (0.0-5.0); NEUTROPHILS # 3.6 10^3/uL (1.8-7.7); NEUTROPHILS % 52.1 % (36.0-66.0); PLATELET COUNT, AUTOMATED 170 10^3/uL (150-450); RED BLOOD COUNT 5.59 10^6/uL (4.30-6.10); WHITE BLOOD COUNT 6.8 10^3/uL (4.0-10.0)
[2018-10-30 16:19] LABS: ALBUMIN 3.7 GM/DL (3.2-5.2); ALT/SGPT 65 U/L (12-78); BILIRUBIN,TOTAL 0.8 MG/DL (0.2-1.0); BLOOD UREA NITROGEN 16 MG/DL (7-18); CALCIUM LEVEL 8.7 MG/DL (8.8-10.2); CARBON DIOXIDE LEVEL 33 MEQ/L (21-32); CHLORIDE LEVEL 107 MEQ/L (98-107); CREATININE FOR GFR 1.23 MG/DL (0.70-1.30); GLOMERULAR FILTRATION RATE > 60.0 (>49); GLUCOSE, FASTING 89 MG/DL (70-100); POTASSIUM SERUM 4.6 MEQ/L (3.5-5.1); SODIUM LEVEL 142 MEQ/L (136-145); TOTAL PROTEIN 6.7 GM/DL (6.4-8.2)
== END ==
LOC: M LAB 15:16
PROVIDERS: ATTEND Internal Medicine Cardiovascular Disease
DX: I50.9 Heart failure, unspecified (principal); R21 Rash and other nonspecific skin eruption

== ENCOUNTER → 2019-12-13 | Outpatient (CLI) | payer MEDICARE, MEDICAID ==
[~2019-12-13] MED LIST changes: +ZETI10TA16 PO; -ZETI10TA30 PO
[2019-12-13 08:03] LABS: HEMATOCRIT 50.2 % (42.0-52.0); HEMOGLOBIN 16.3 g/dl (13.5-17.5); MEAN CORPUSCULAR HEMOGLOBIN 29.7 pg (27.0-33.0); MEAN CORPUSCULAR HGB CONC 32.5 g/dl (32.0-36.5); MEAN CORPUSCULAR VOLUME 91.4 fl (80.0-96.0); PLATELET COUNT, AUTOMATED 175 10^3/uL (150-450); RED BLOOD COUNT 5.49 10^6/uL (4.30-6.10); WHITE BLOOD COUNT 6.5 10^3/uL (4.0-10.0)
[2019-12-13 08:27] LABS: HEMOGLOBIN A1c 6.7 %
[2019-12-13 08:40] LABS: ALBUMIN 3.6 GM/DL (3.2-5.2); ALT/SGPT 82 U/L (12-78); BILIRUBIN,TOTAL 1.1 MG/DL (0.2-1.0); BLOOD UREA NITROGEN 19 MG/DL (7-18); CALCIUM LEVEL 8.3 MG/DL (8.8-10.2); CARBON DIOXIDE LEVEL 31 MEQ/L (21-32); CHLORIDE LEVEL 107 MEQ/L (98-107); CHOLESTEROL LEVEL 125 MG/DL (<200); CHOLESTEROL RISK RATIO 3.571 (<5); GLOMERULAR FILTRATION RATE > 60.0 (>49); GLUCOSE, FASTING 116 MG/DL (70-100); HDL CHOLESTEROL 35 MG/DL (>40); LDL CHOLESTEROL 76 MG/DL (<100); NON-HDL-C 90 MG/DL; POTASSIUM SERUM 4.2 MEQ/L (3.5-5.1); SODIUM LEVEL 144 MEQ/L (136-145); TRIGLYCERIDES LEVEL 69 MG/DL (<150)
== END ==
LOC: M LAB 06:47
PROVIDERS: ATTEND Nurse Practitioner Adult Health
DX: I25.10 Atherosclerotic heart disease of native coronary artery without angina pectoris (principal); I48.21 Permanent atrial fibrillation; Z13.29 Encounter for screening for other suspected endocrine disorder; E78.2 Mixed hyperlipidemia

== ENCOUNTER → 2020-09-20 | Outpatient (REF) | payer MEDICARE, MEDICAID ==
[~2020-09-20] MED LIST changes: -LISI-538 PO; +LISI20TA33 PO
== END ==
LOC: M LAB REF 14:31
PROVIDERS: ATTEND Physician Assistant Medical
DX: H73.002 Acute myringitis, left ear (principal)

== ENCOUNTER → 2021-05-02 | Outpatient (REF) | payer MEDICARE, MEDICAID | LOC: M SFHCPLAZ 12:44 | PROVIDERS: ATTEND Physician Assistant | DX: R09.81 Nasal congestion (principal) | CPT/HCPCS: 87426; 87798; G0463 ==

== ENCOUNTER → 2021-07-12 | Outpatient (REF) | payer MEDICARE, MEDICAID | LOC: M LAB REF 11:59 | PROVIDERS: ATTEND Physician Assistant Medical | DX: H66.42 Suppurative otitis media, unspecified, left ear (principal) ==

== ENCOUNTER → 2021-08-06 | Outpatient (REF) | payer MEDICARE, MEDICAID ==
[2021-08-06 16:22] LABS: HEMATOCRIT 49.2 % (42.0-52.0); HEMOGLOBIN 15.9 g/dl (13.5-17.5); MEAN CORPUSCULAR HEMOGLOBIN 29.1 pg (27.0-33.0); MEAN CORPUSCULAR HGB CONC 32.3 g/dl (32.0-36.5); MEAN CORPUSCULAR VOLUME 89.9 fl (80.0-96.0); PLATELET COUNT, AUTOMATED 142 10^3/uL (150-450); RED BLOOD COUNT 5.47 10^6/uL (4.30-6.10); WHITE BLOOD COUNT 6.7 10^3/uL (4.0-10.0)
[2021-08-06 17:02] LABS: BLOOD UREA NITROGEN 18 MG/DL (7-18); CALCIUM LEVEL 9.1 MG/DL (8.8-10.2); CARBON DIOXIDE LEVEL 29 MEQ/L (21-32); CHLORIDE LEVEL 108 MEQ/L (98-107); CREATININE FOR GFR 0.98 MG/DL (0.70-1.30); GLOMERULAR FILTRATION RATE > 60.0 (>49); GLUCOSE, FASTING 185 MG/DL (70-100); POTASSIUM SERUM 4.4 MEQ/L (3.5-5.1); SODIUM LEVEL 142 MEQ/L (136-145)
== END ==
LOC: M WUC 15:42
PROVIDERS: ATTEND Internal Medicine Cardiovascular Disease
DX: I50.42 Chronic combined systolic (congestive) and diastolic (congestive) heart failure (principal)

== ENCOUNTER → 2021-08-20 | Outpatient (CLI) | payer MEDICARE, MEDICAID ==
[2021-08-20 17:47] LABS: HEMOGLOBIN A1c 7.7 %
[2021-08-20 17:55] LABS: ALBUMIN 3.9 GM/DL (3.2-5.2); ALT/SGPT 79 U/L (12-78); BILIRUBIN,TOTAL 1.1 MG/DL (0.2-1.0); BLOOD UREA NITROGEN 17 MG/DL (7-18); CARBON DIOXIDE LEVEL 33 MEQ/L (21-32); CHLORIDE LEVEL 104 MEQ/L (98-107); CREATININE FOR GFR 1.18 MG/DL (0.70-1.30); GLOMERULAR FILTRATION RATE > 60.0 (>49); GLUCOSE, FASTING 134 MG/DL (70-100); MALB URINE SIEMENS 23.1 MG/L; MAU/CREAT RATIO 12.2 MCG/MG (0.0-30.0); POTASSIUM SERUM 4.7 MEQ/L (3.5-5.1); SODIUM LEVEL 140 MEQ/L (136-145)
== END ==
LOC: M PLALAB 14:33
PROVIDERS: ATTEND Nurse Practitioner Adult Health
DX: E11.9 Type 2 diabetes mellitus without complications (principal); E78.2 Mixed hyperlipidemia; I48.91 Unspecified atrial fibrillation

== ENCOUNTER → 2022-02-27 | Outpatient (CLI) | payer MEDICARE, MEDICAID ==
[2022-02-27 12:19] LABS: HEMATOCRIT 54.1 % (42.0-52.0); HEMOGLOBIN 16.9 g/dl (13.5-17.5); MEAN CORPUSCULAR HEMOGLOBIN 28.3 pg (27.0-33.0); MEAN CORPUSCULAR HGB CONC 31.2 g/dl (32.0-36.5); MEAN CORPUSCULAR VOLUME 90.5 fl (80.0-96.0); PLATELET COUNT, AUTOMATED 176 10^3/uL (150-450); RED BLOOD COUNT 5.98 10^6/uL (4.30-6.10); WHITE BLOOD COUNT 6.4 10^3/uL (4.0-10.0)
[2022-02-27 13:03] LABS: MALB URINE SIEMENS 15.6 MG/L; MAU/CREAT RATIO 9.4 MCG/MG (0.0-30.0)
[2022-02-27 13:04] LABS: ALBUMIN 3.9 GM/DL (3.2-5.2); ALT/SGPT 67 U/L (12-78); BILIRUBIN,TOTAL 1.3 MG/DL (0.2-1.0); BLOOD UREA NITROGEN 19 MG/DL (7-18); CALCIUM LEVEL 8.8 MG/DL (8.8-10.2); CARBON DIOXIDE LEVEL 31 MEQ/L (21-32); CHLORIDE LEVEL 105 MEQ/L (98-107); CHOLESTEROL LEVEL 120 MG/DL (<200); CHOLESTEROL RISK RATIO 3.333 (<5); CREATININE FOR GFR 1.08 MG/DL (0.70-1.30); GLOMERULAR FILTRATION RATE > 60.0 (>42); GLUCOSE, FASTING 103 MG/DL (70-100); HDL CHOLESTEROL 36 MG/DL (>40); LDL CHOLESTEROL 66 MG/DL (<100); NON-HDL-C 84 MG/DL; POTASSIUM SERUM 4.4 MEQ/L (3.5-5.1); SODIUM LEVEL 140 MEQ/L (136-145); TRIGLYCERIDES LEVEL 88 MG/DL (<150)
[2022-02-27 16:17] LABS: HEMOGLOBIN A1c 7.5 %
== END ==
LOC: M WUC 08:04
PROVIDERS: ATTEND Nurse Practitioner Adult Health
DX: E78.2 Mixed hyperlipidemia (principal); E11.9 Type 2 diabetes mellitus without complications; I48.91 Unspecified atrial fibrillation

== ENCOUNTER → 2022-05-29 | Outpatient (CLI) | payer MEDICARE, MEDICAID ==
[2022-05-29 12:30] LABS: HEMATOCRIT 51.7 % (42.0-52.0); HEMOGLOBIN 16.2 g/dl (13.5-17.5); MEAN CORPUSCULAR HEMOGLOBIN 28.5 pg (27.0-33.0); MEAN CORPUSCULAR HGB CONC 31.3 g/dl (32.0-36.5); PLATELET COUNT, AUTOMATED 164 10^3/uL (150-450); RED BLOOD COUNT 5.68 10^6/uL (4.30-6.10); WHITE BLOOD COUNT 6.3 10^3/uL (4.0-10.0)
[2022-05-29 13:06] LABS: BLOOD UREA NITROGEN 20 MG/DL (9-23); CALCIUM LEVEL 8.6 MG/DL (8.3-10.6); CARBON DIOXIDE LEVEL 33 MMOL/L (20-31); CHLORIDE LEVEL 107 MMOL/L (98-107); CREATININE FOR GFR 1.13 MG/DL (0.70-1.30); GLOMERULAR FILTRATION RATE > 60.0 (>42); GLUCOSE, FASTING 153 MG/DL (74-106); POTASSIUM SERUM 4.7 MMOL/L (3.5-5.1); SODIUM LEVEL 143 MMOL/L (136-145)
== END ==
LOC: M WUC 09:47
PROVIDERS: ATTEND Internal Medicine Cardiovascular Disease
DX: I50.9 Heart failure, unspecified (principal); I50.42 Chronic combined systolic (congestive) and diastolic (congestive) heart failure; I48.91 Unspecified atrial fibrillation

== ENCOUNTER → 2022-06-08 | Outpatient (CLI) | payer MEDICARE, MEDICAID ==
[2022-06-08 11:52] LABS: ALBUMIN 3.8 G/DL (3.2-5.2); ALKALINE PHOSPHATASE 76 U/L (46-116); ALT/SGPT 63 U/L (7.0-40); AST/SGOT 40 U/L (<34); BLOOD UREA NITROGEN 17 MG/DL (9-23); CALCIUM LEVEL 8.8 MG/DL (8.3-10.6); CARBON DIOXIDE LEVEL 30 MMOL/L (20-31); CHLORIDE LEVEL 105 MMOL/L (98-107); CHOLESTEROL LEVEL 154 MG/DL (<200); CREATININE FOR GFR 0.99 MG/DL (0.70-1.30); GLOMERULAR FILTRATION RATE > 60.0 (>42); GLUCOSE, FASTING 137 MG/DL (74-106); HDL CHOLESTEROL 40.1 MG/DL (>40); LDL CHOLESTEROL 91.7 MG/DL (<100); MAGNESIUM LEVEL 1.8 MG/DL (1.8-2.4); POTASSIUM SERUM 4.4 MMOL/L (3.5-5.1); SODIUM LEVEL 141 MMOL/L (136-145); TOTAL PROTEIN 6.8 G/DL (5.7-8.2); TRIGLYCERIDES LEVEL 111 MG/DL (<150)
== END ==
LOC: M LAB 10:15
PROVIDERS: ATTEND Internal Medicine Cardiovascular Disease
DX: I50.42 Chronic combined systolic (congestive) and diastolic (congestive) heart failure (principal); E78.2 Mixed hyperlipidemia; I48.19 Other persistent atrial fibrillation

== ENCOUNTER → 2022-06-13 | Outpatient (CLI) | payer MEDICARE, MEDICAID ==
[2022-06-13 12:08] LABS: ALKALINE PHOSPHATASE 75 U/L (46-116); ALT/SGPT 72 U/L (7.0-40); AST/SGOT 48 U/L (<34); BILIRUBIN,TOTAL 1.3 MG/DL (0.3-1.2); BLOOD UREA NITROGEN 21 MG/DL (9-23); CALCIUM LEVEL 8.8 MG/DL (8.3-10.6); CARBON DIOXIDE LEVEL 33 MMOL/L (20-31); CHLORIDE LEVEL 105 MMOL/L (98-107); CHOLESTEROL LEVEL 148 MG/DL (<200); CHOLESTEROL RISK RATIO 3.84 (<5); CREATININE FOR GFR 1.04 MG/DL (0.70-1.30); GLOMERULAR FILTRATION RATE > 60.0 (>42); GLUCOSE, FASTING 141 MG/DL (74-106); HDL CHOLESTEROL 38.5 MG/DL (>40); HEMATOCRIT 55.5 % (42.0-52.0); HEMOGLOBIN 17.4 g/dl (13.5-17.5); LDL CHOLESTEROL 88.9 MG/DL (<100); MAGNESIUM LEVEL 1.8 MG/DL (1.8-2.4); MEAN CORPUSCULAR HEMOGLOBIN 28.5 pg (27.0-33.0); MEAN CORPUSCULAR HGB CONC 31.4 g/dl (32.0-36.5); MEAN CORPUSCULAR VOLUME 90.8 fl (80.0-96.0); NON-HDL-C 110 MG/DL; PLATELET COUNT, AUTOMATED 180 10^3/uL (150-450); POTASSIUM SERUM 4.7 MMOL/L (3.5-5.1); RED BLOOD COUNT 6.11 10^6/uL (4.30-6.10); SODIUM LEVEL 142 MMOL/L (136-145); TOTAL PROTEIN 7.4 G/DL (5.7-8.2); TRIGLYCERIDES LEVEL 103 MG/DL (<150); WHITE BLOOD COUNT 5.6 10^3/uL (4.0-10.0)
[2022-06-14 08:09] LABS: LDL DIRECT 101 mg/dL (0-99)
== END ==
LOC: M WUC 09:31
PROVIDERS: ATTEND Internal Medicine Cardiovascular Disease
DX: E78.2 Mixed hyperlipidemia (principal); I50.42 Chronic combined systolic (congestive) and diastolic (congestive) heart failure; I11.0 Hypertensive heart disease with heart failure; I48.21 Permanent atrial fibrillation

== ENCOUNTER → 2022-08-26 | Outpatient (CLI) | payer MEDICARE, MEDICAID ==
[2022-08-26 17:24] LABS: ALBUMIN 3.9 G/DL (3.2-5.2); ALKALINE PHOSPHATASE 76 U/L (46-116); ALT/SGPT 93 U/L (7.0-40); AST/SGOT 58 U/L (<34); BILIRUBIN,TOTAL 1.2 MG/DL (0.3-1.2); BLOOD UREA NITROGEN 20 MG/DL (9-23); CALCIUM LEVEL 8.9 MG/DL (8.3-10.6); CARBON DIOXIDE LEVEL 30 MMOL/L (20-31); CHLORIDE LEVEL 106 MMOL/L (98-107); CREATININE FOR GFR 1.09 MG/DL (0.70-1.30); GLOMERULAR FILTRATION RATE > 60.0 (>42); GLUCOSE, FASTING 121 MG/DL (74-106); POTASSIUM SERUM 4.2 MMOL/L (3.5-5.1); SODIUM LEVEL 140 MMOL/L (136-145); THYROID STIMULATING HORMONE 1.484 uIU/ML (0.55-4.78); TOTAL PROTEIN 6.9 G/DL (5.7-8.2)
[2022-08-26 17:26] LABS: HEMOGLOBIN A1c 7.4 % (4.0-6.0)
== END ==
LOC: M PLALAB 14:17
PROVIDERS: ATTEND Nurse Practitioner Adult Health
DX: I48.91 Unspecified atrial fibrillation (principal); E11.9 Type 2 diabetes mellitus without complications

== ENCOUNTER → 2022-11-14 | Outpatient (CLI) | payer MEDICARE, MEDICAID ==
[2022-11-14 17:24] LABS: BASO # 0.1 10^3/uL (0.0-0.2); BASO % 0.9 % (0.0-1.0); EOS # 0.1 10^3/uL (0.0-0.5); EOS % 2.6 % (0.0-3.0); HEMATOCRIT 52.3 % (42.0-52.0); HEMOGLOBIN 16.6 g/dl (13.5-17.5); LYMPH # 1.9 10^3/uL (1.5-5.0); LYMPH % 34.9 % (24.0-44.0); MEAN CORPUSCULAR HEMOGLOBIN 28.1 pg (27.0-33.0); MEAN CORPUSCULAR HGB CONC 31.7 g/dl (32.0-36.5); MEAN CORPUSCULAR VOLUME 88.6 fl (80.0-96.0); MONO # 0.5 10^3/uL (0.0-0.8); MONO % 8.8 % (2.0-8.0); NEUTROPHILS # 2.9 10^3/uL (1.5-8.5); NEUTROPHILS % 52.6 % (36.0-66.0); PLATELET COUNT, AUTOMATED 164 10^3/uL (150-450); WHITE BLOOD COUNT 5.5 10^3/uL (4.0-10.0)
[2022-11-14 17:49] LABS: BLOOD UREA NITROGEN 15 MG/DL (9-23); CALCIUM LEVEL 8.9 MG/DL (8.3-10.6); CARBON DIOXIDE LEVEL 29 MMOL/L (20-31); CHLORIDE LEVEL 103 MMOL/L (98-107); CREATININE FOR GFR 0.97 MG/DL (0.70-1.30); GLOMERULAR FILTRATION RATE > 60.0 (>42); GLUCOSE, FASTING 178 MG/DL (74-106); POTASSIUM SERUM 4.2 MMOL/L (3.5-5.1); SODIUM LEVEL 140 MMOL/L (136-145)
== END ==
LOC: M WUC 12:05
PROVIDERS: ATTEND Internal Medicine Cardiovascular Disease
DX: E78.2 Mixed hyperlipidemia (principal)

== ENCOUNTER → 2022-11-29 | Outpatient (REF) | payer MEDICARE, MEDICAID | LOC: M SFHCDERM 14:48 | PROVIDERS: ATTEND Nurse Practitioner Family | DX: D49.2 Neoplasm of unspecified behavior of bone, soft tissue, and skin (principal) ==

== ENCOUNTER → 2022-12-10 | Outpatient (CLI) | payer MEDICARE, MEDICAID ==
[2022-12-10 17:41] LABS: ALBUMIN 3.7 G/DL (3.2-5.2); ALKALINE PHOSPHATASE 87 U/L (46-116); ALT/SGPT 87 U/L (7.0-40); AST/SGOT 59 U/L (<34); BILIRUBIN,TOTAL 1.2 MG/DL (0.3-1.2); BLOOD UREA NITROGEN 15 MG/DL (9-23); CALCIUM LEVEL 8.6 MG/DL (8.3-10.6); CARBON DIOXIDE LEVEL 28 MMOL/L (20-31); CHLORIDE LEVEL 107 MMOL/L (98-107); CHOLESTEROL LEVEL 123 MG/DL (<200); CHOLESTEROL RISK RATIO 3.28 (<5); CREATININE FOR GFR 0.97 MG/DL (0.70-1.30); GLOMERULAR FILTRATION RATE > 60.0 (>42); GLUCOSE, FASTING 134 MG/DL (74-106); HDL CHOLESTEROL 37.4 MG/DL (>40); LDL CHOLESTEROL 60.6 MG/DL (<100); MAGNESIUM LEVEL 1.8 MG/DL (1.8-2.4); NON-HDL-C 85.6 MG/DL; POTASSIUM SERUM 4.5 MMOL/L (3.5-5.1); SODIUM LEVEL 144 MMOL/L (136-145); TOTAL PROTEIN 6.7 G/DL (5.7-8.2); TRIGLYCERIDES LEVEL 125 MG/DL (<150)
== END ==
LOC: M WUC 11:59
PROVIDERS: ATTEND Registered Nurse
DX: E78.2 Mixed hyperlipidemia (principal); I11.0 Hypertensive heart disease with heart failure; I25.10 Atherosclerotic heart disease of native coronary artery without angina pectoris; I50.42 Chronic combined systolic (congestive) and diastolic (congestive) heart failure

== ENCOUNTER → 2023-07-03 | Outpatient (CLI) | payer MEDICARE, MEDICAID ==
[~2023-07-03] MED LIST changes: +EZET10TA58 PO; -ZETI10TA16 PO
[2023-07-03 17:28] LABS: ALBUMIN 3.6 G/DL (3.2-5.2); ALKALINE PHOSPHATASE 85 U/L (46-116); ALT/SGPT 113 U/L (7.0-40); AST/SGOT 47 U/L (<34); BILIRUBIN,TOTAL 1.2 MG/DL (0.3-1.2); BLOOD UREA NITROGEN 16 MG/DL (9-23); CALCIUM LEVEL 8.7 MG/DL (8.3-10.6); CARBON DIOXIDE LEVEL 31 MMOL/L (20-31); CHLORIDE LEVEL 102 MMOL/L (98-107); CHOLESTEROL LEVEL 110 MG/DL (<200); CHOLESTEROL RISK RATIO 3.75 (<5); CREATININE FOR GFR 0.93 MG/DL (0.70-1.30); GLOMERULAR FILTRATION RATE > 60.0 (>42); GLUCOSE, FASTING 216 MG/DL (74-106); HDL CHOLESTEROL 29.3 MG/DL (>40); LDL CHOLESTEROL 57.3 MG/DL (<100); MAGNESIUM LEVEL 1.6 MG/DL (1.8-2.4); NON-HDL-C 80.7 MG/DL; POTASSIUM SERUM 4.1 MMOL/L (3.5-5.1); SODIUM LEVEL 139 MMOL/L (136-145); TOTAL PROTEIN 6.6 G/DL (5.7-8.2); TRIGLYCERIDES LEVEL 117 MG/DL (<150)
== END ==
LOC: M WUC 12:53
PROVIDERS: ATTEND Registered Nurse
DX: E78.2 Mixed hyperlipidemia (principal); R06.02 Shortness of breath; I48.91 Unspecified atrial fibrillation; I50.42 Chronic combined systolic (congestive) and diastolic (congestive) heart failure

== ENCOUNTER → 2023-09-04 | Outpatient (CLI) | payer MEDICARE, MEDICAID ==
[2023-09-04 12:18] LABS: ALBUMIN 3.6 G/DL (3.2-5.2); ALKALINE PHOSPHATASE 87 U/L (46-116); ALT/SGPT 92 U/L (7.0-40); AST/SGOT 58 U/L (<34); BILIRUBIN,TOTAL 1.2 MG/DL (0.3-1.2); BLOOD UREA NITROGEN 14 MG/DL (9-23); CALCIUM LEVEL 8.3 MG/DL (8.3-10.6); CARBON DIOXIDE LEVEL 32 MMOL/L (20-31); CHLORIDE LEVEL 103 MMOL/L (98-107); CHOLESTEROL LEVEL 119 MG/DL (<200); CHOLESTEROL RISK RATIO 3.59 (<5); CREATININE FOR GFR 0.93 MG/DL (0.70-1.30); GLOMERULAR FILTRATION RATE > 60.0 (>42); GLUCOSE, FASTING 180 MG/DL (74-106); HDL CHOLESTEROL 33.1 MG/DL (>40); HEMOGLOBIN 16.7 g/dl (13.5-17.5); LDL CHOLESTEROL 67.9 MG/DL (<100); MAGNESIUM LEVEL 1.9 MG/DL (1.8-2.4); MEAN CORPUSCULAR HEMOGLOBIN 28.4 pg (27.0-33.0); MEAN CORPUSCULAR HGB CONC 32.1 g/dl (32.0-36.5); MEAN CORPUSCULAR VOLUME 88.6 fl (80.0-96.0); NON-HDL-C 85.9 MG/DL; PLATELET COUNT, AUTOMATED 167 10^3/uL (150-450); POTASSIUM SERUM 4.3 MMOL/L (3.5-5.1); RED BLOOD COUNT 5.87 10^6/uL (4.30-6.10); SODIUM LEVEL 140 MMOL/L (136-145); TOTAL PROTEIN 6.6 G/DL (5.7-8.2); TRIGLYCERIDES LEVEL 90 MG/DL (<150); WHITE BLOOD COUNT 5.4 10^3/uL (4.0-10.0)
[2023-09-04 12:22] LABS: THYROID STIMULATING HORMONE 3.083 uIU/ML (0.55-4.78)
[2023-09-04 12:56] LABS: CREATININE, URINE 85.3 MG/DL; MAU/CREAT RATIO 4.6 MCG/MG (0.0-30.0)
== END ==
LOC: M WUC 08:04
PROVIDERS: ATTEND Nurse Practitioner Adult Health
DX: I48.91 Unspecified atrial fibrillation (principal); E11.9 Type 2 diabetes mellitus without complications; E78.2 Mixed hyperlipidemia
CPT/HCPCS: 36415; 80053; 80061; 82043; 83036; 83735; 84443; 85027; G0472

== ENCOUNTER → 2023-10-13 | Outpatient (CLI) | payer MEDICARE, MEDICAID ==
[2023-10-13 12:58] LABS: ALBUMIN 3.7 G/DL (3.2-5.2); ALKALINE PHOSPHATASE 71 U/L (46-116); ALT/SGPT 124 U/L (7.0-40); AST/SGOT 71 U/L (<34); BILIRUBIN,TOTAL 1.3 MG/DL (0.3-1.2); BLOOD UREA NITROGEN 22 MG/DL (9-23); CALCIUM LEVEL 8.7 MG/DL (8.3-10.6); CARBON DIOXIDE LEVEL 31 MMOL/L (20-31); CHLORIDE LEVEL 104 MMOL/L (98-107); CREATININE FOR GFR 1.01 MG/DL (0.70-1.30); GLOMERULAR FILTRATION RATE > 60.0 (>42); GLUCOSE, FASTING 170 MG/DL (74-106); POTASSIUM SERUM 4.5 MMOL/L (3.5-5.1); SODIUM LEVEL 138 MMOL/L (136-145); TOTAL PROTEIN 6.5 G/DL (5.7-8.2)
[2023-10-13 13:25] LABS: HEMOGLOBIN A1c 8.8 % (4.0-6.0)
== END ==
LOC: M PLALAB 10:16
PROVIDERS: ATTEND Nurse Practitioner Adult Health
DX: E11.9 Type 2 diabetes mellitus without complications (principal)

== ENCOUNTER → 2023-12-05 | Outpatient (REF) | payer MEDICARE, MEDICAID | LOC: M SFHCDERM 17:48 | PROVIDERS: ATTEND Physician Assistant | DX: L90.5 Scar conditions and fibrosis of skin (principal); L82.1 Other seborrheic keratosis ==

== ENCOUNTER → 2024-02-11 | Outpatient (CLI) | payer MEDICARE, MEDICAID ==
[2024-02-11 07:49] LABS: HEMATOCRIT 49.8 % (42.0-52.0); HEMOGLOBIN 15.9 g/dl (13.5-17.5); MEAN CORPUSCULAR HEMOGLOBIN 28.3 pg (27.0-33.0); MEAN CORPUSCULAR HGB CONC 31.9 g/dl (32.0-36.5); MEAN CORPUSCULAR VOLUME 88.6 fl (80.0-96.0); PLATELET COUNT, AUTOMATED 151 10^3/uL (150-450); RED BLOOD COUNT 5.62 10^6/uL (4.30-6.10); WHITE BLOOD COUNT 5.3 10^3/uL (4.0-10.0)
[2024-02-11 08:33] LABS: ALBUMIN 3.4 G/DL (3.2-5.2); ALKALINE PHOSPHATASE 81 U/L (46-116); ALT/SGPT 114 U/L (7.0-40); AST/SGOT 65 U/L (<34); BILIRUBIN,TOTAL 1.1 MG/DL (0.3-1.2); BLOOD UREA NITROGEN 19 MG/DL (9-23); CALCIUM LEVEL 8.6 MG/DL (8.3-10.6); CARBON DIOXIDE LEVEL 28 MMOL/L (20-31); CHLORIDE LEVEL 110 MMOL/L (98-107); CHOLESTEROL LEVEL 117 MG/DL (<200); CHOLESTEROL RISK RATIO 3.75 (<5); CREATININE FOR GFR 0.87 MG/DL (0.70-1.30); GLOMERULAR FILTRATION RATE > 60.0 (>42); GLUCOSE, FASTING 117 MG/DL (74-106); HDL CHOLESTEROL 31.2 MG/DL (>40); LDL CHOLESTEROL 64.6 MG/DL (<100); MAGNESIUM LEVEL 1.8 MG/DL (1.8-2.4); NON-HDL-C 85.8 MG/DL; SODIUM LEVEL 141 MMOL/L (136-145); TOTAL PROTEIN 6.6 G/DL (5.7-8.2); TRIGLYCERIDES LEVEL 106 MG/DL (<150)
[2024-02-11 08:34] LABS: FREE T4 0.98 NG/DL (0.89-1.76); THYROID STIMULATING HORMONE 5.478 uIU/ML (0.55-4.78)
[2024-02-11 08:57] LABS: HEMOGLOBIN A1c 7.9 % (4.0-6.0)
== END ==
LOC: M LAB 06:29
PROVIDERS: ATTEND Nurse Practitioner Adult Health
DX: I25.5 Ischemic cardiomyopathy (principal); I48.91 Unspecified atrial fibrillation; E11.9 Type 2 diabetes mellitus without complications; E78.2 Mixed hyperlipidemia

== ENCOUNTER → 2024-03-29 | Outpatient (CLI) | payer MEDICARE, MEDICAID ==
[2024-03-29 13:21] LABS: ALBUMIN 3.3 G/DL (3.2-5.2); BILIRUBIN,DIRECT 0.2 MG/DL (<0.4); BILIRUBIN,TOTAL 0.5 MG/DL (0.3-1.2); TOTAL PROTEIN 6.9 G/DL (5.7-8.2)
== END ==
LOC: M LAB 11:42
PROVIDERS: ATTEND Internal Medicine Cardiovascular Disease
DX: R79.89 Other specified abnormal findings of blood chemistry (principal)

== ENCOUNTER → 2024-05-14 | Outpatient (REF) | payer MEDICARE, MEDICAID | LOC: M SFHCDERM 17:46 | PROVIDERS: ATTEND Nurse Practitioner Family | DX: L82.1 Other seborrheic keratosis (principal); C44.212 Basal cell carcinoma of skin of right ear and external auricular canal ==

== ENCOUNTER → 2024-06-08 | Outpatient (CLI) | payer MEDICARE, MEDICAID ==
[2024-06-08 08:11] LABS: ALBUMIN 3.6 G/DL (3.2-5.2); BILIRUBIN,DIRECT 0.3 MG/DL (<0.4); TOTAL PROTEIN 6.8 G/DL (5.7-8.2)
== END ==
LOC: M LAB 07:15
PROVIDERS: ATTEND Internal Medicine Cardiovascular Disease
DX: R79.89 Other specified abnormal findings of blood chemistry (principal); E78.00 Pure hypercholesterolemia, unspecified; I25.10 Atherosclerotic heart disease of native coronary artery without angina pectoris

== ENCOUNTER → 2024-06-29 | Outpatient (CLI) | payer MEDICARE, MEDICAID ==
[2024-06-29 07:33] LABS: HEMATOCRIT 49.3 % (42.0-52.0); HEMOGLOBIN 15.8 g/dl (13.5-17.5); MEAN CORPUSCULAR HEMOGLOBIN 27.9 pg (27.0-33.0); MEAN CORPUSCULAR VOLUME 86.9 fl (80.0-96.0); PLATELET COUNT, AUTOMATED 147 10^3/uL (150-450); RED BLOOD COUNT 5.67 10^6/uL (4.30-6.10); WHITE BLOOD COUNT 6.2 10^3/uL (4.0-10.0)
[2024-06-29 08:11] LABS: LIPASE 62 U/L (12-53)
[2024-06-29 08:13] LABS: ALBUMIN 3.3 G/DL (3.2-5.2); ALKALINE PHOSPHATASE 64 U/L (40-129); ALT/SGPT 80 U/L (7.0-40); AMYLASE 44 U/L (30-118); AST/SGOT 49 U/L (<34); BILIRUBIN,TOTAL 1.4 MG/DL (0.3-1.2); BLOOD UREA NITROGEN 18 MG/DL (9-23); CARBON DIOXIDE LEVEL 30 MMOL/L (20-31); CHLORIDE LEVEL 106 MMOL/L (98-107); CHOLESTEROL LEVEL 101 MG/DL (<200); CHOLESTEROL RISK RATIO 4.13 (<5); CREATININE FOR GFR 0.89 MG/DL (0.70-1.30); GLOMERULAR FILTRATION RATE > 60.0 (>42); GLUCOSE, FASTING 108 MG/DL (74-106); HDL CHOLESTEROL 24.4 MG/DL (>40); LDL CHOLESTEROL 60.2 MG/DL (<100); NON-HDL-C 76.6 MG/DL; POTASSIUM SERUM 4.2 MMOL/L (3.5-5.1); SODIUM LEVEL 143 MMOL/L (136-145); TOTAL PROTEIN 6.2 G/DL (5.7-8.2); TRIGLYCERIDES LEVEL 82 MG/DL (<150)
[2024-06-29 08:15] LABS: FREE T4 0.99 NG/DL (0.89-1.76)
[2024-06-29 08:44] LABS: HEMOGLOBIN A1c 6.7 % (4.0-6.0)
== END ==
LOC: M LAB 07:06
PROVIDERS: ATTEND Nurse Practitioner Adult Health
DX: I48.91 Unspecified atrial fibrillation (principal); E11.9 Type 2 diabetes mellitus without complications; E78.2 Mixed hyperlipidemia

== ENCOUNTER → 2025-04-07 | Outpatient (REF) | payer MEDICARE, MEDICAID | LOC: M SFHCPLAZ 15:11 | PROVIDERS: ATTEND Nurse Practitioner Adult Health | DX: R09.89 Other specified symptoms and signs involving the circulatory and respiratory systems (principal) ==

== ENCOUNTER → 2025-04-18 | Outpatient (CLI) | payer MEDICARE, MEDICAID | LOC: M SOG 07:39 | PROVIDERS: ATTEND Orthopaedic Surgery | DX: M25.552 Pain in left hip (principal) ==